=== PATIENT | female | born 1990 | race African-American/Black ===

== ENCOUNTER 2016-09-22 09:15 | Emergency (ER) | payer OTHER, SELFPAY ==
[2016-09-22] MEDS ORDERED: HYDROcodone/Acetaminophen 5/325 mg Tablet ONE (09:28)
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
== END 2016-09-22 10:19 | disposition home or self-care (01) ==
LOC: BURERS 09:15
DX: S09.90XA Unspecified injury of head, initial encounter (principal); F17.210 Nicotine dependence, cigarettes, uncomplicated; V49.9XXA Car occupant (driver) (passenger) injured in unspecified traffic accident, initial encounter
CPT/HCPCS: 70450